=== PATIENT | female | born 1965 | race Caucasian/White ===

== ENCOUNTER 2016-11-03 09:33 | Emergency (ER) | payer BC ==
[~2016-11-03] VITALS: Ht 162.6 cm; Wt 49.0 kg
--- NOTE | 2016-11-03 09:44 | NUR ---
PT BIBA POSSIBLE OVERDOSE OF ADVIL. PT REPORTS THAT SHE HAS BEEN DRINKING ALCOHOL A LOT LATELY. NOTED CRYING AT BS, DENIES SI/HI. [employer] OFFICERS AT BS. SEEN BY MD FOR EVAL. VSS. SAFETY AND COMFORT MEASURES PROVIDED. WILL MONITOR.
--- NOTE | 2016-11-03 09:55 | NUR ---
PT REFUSED TI GIVE URINE SAMPLE AND BLOOD DRRAW. MADE AWARE.
--- NOTE | 2016-11-03 10:04 | NUR ---
[employer] SANTI COLLAZO CALLED FOR SITTER OR SECURITY FOR 1:1 SITTER,GIFTY EMT ASKED TO SIT WITH PATIENT FOR NOW
[2016-11-03] MEDS ORDERED: HALOPERIDOL LACTATE INJ 5 MG/ML VIAL ONE (10:13)
--- NOTE | 2016-11-03 10:26 | NUR ---
CONTACT INFO: MONCHO ANSARI([id number]=[phone])
[2016-11-03] MEDS ORDERED: HALOPERIDOL LACTATE INJ 5 MG/ML VIAL IM ONE (10:30)
--- NOTE | 2016-11-03 10:37 | NUR ---
Patient discharged to home with in stable condition. Written and verbal after care instructions given. Patient/ verbalizes understanding of instruction. All questions answered. Pt. ambulatory with a steady gait.
[2016-11-03 10:39] VITALS: BP 134/93
== END 2016-11-03 10:39 | disposition home or self-care (01) ==
LOC: ER 09:35
DX: F10.129 Alcohol abuse with intoxication, unspecified (principal)
CPT/HCPCS: 96372; 99283; A4606; J1630; Z7610